=== PATIENT | female | born 1960 | race Caucasian/White ===

== ENCOUNTER 2017-06-01 13:41 | Inpatient (IN) ==
[2017-06-01] MEDS ORDERED: Lidocaine -MPF 1% 2 ML VIAL ID ONE (13:58)
[2017-06-01] MEDS ORDERED: Albuterol 2.5 MG/3 ML NEBULIZER IH ONE (13:58)
[2017-06-01] MEDS ORDERED: CeFAZolin Pre 2,000 MG/100 ML 2,000 MG/100 ML BAG IVPB ONE (13:58)
[2017-06-01] MEDS ORDERED: Ringers Solution, Lactated 1,000 ML IVC SCH ×2 (14:00→18:33)
[2017-06-01] MEDS ORDERED: *HR* Midazolam HCl 2 MG/2 ML VIAL ONE (14:30)
[2017-06-01] MEDS ORDERED: *HR* Succinylcholine 200 MG/10 ML VIAL IVP ONE (14:30)
[2017-06-01] MEDS ORDERED: Ondansetron 4 MG/2 ML VIAL ONE (14:30)
[2017-06-01] MEDS ORDERED: *HR* FentaNYL (PF) 100 MCG/2 ML VIAL ONE (14:30)
[2017-06-01] MEDS ORDERED: *HR* Propofol 200 MG/20 ML VIAL IVP ONE (14:30)
[2017-06-01] MEDS ORDERED: Lidocaine -MPF 2% 2 ML VIAL ONE (14:30)
[2017-06-01] MEDS ORDERED: *HR* Meperidine 25 MG/ML SYRINGE IVP PRN (14:36)
[2017-06-01] MEDS ORDERED: *HR* Promethazine 25 MG/ML VIAL IVP PRN (14:36)
--- NOTE | 2017-06-01 14:52 | History & Physical Report ---
Date of Encounter: 06/01/17 Time of Encounter: 14:52 24 Hour HP Update - Instructions Instructions: If the History and Physical is less than 30 days old and was completed prior to A.M. admission and or procedure and has NOT been updated on calendar day of procedure please complete this update prior to performing procedure. - Update Patient reports changes in Medical Condition: No Changes in examination, assessment, or condition: No Changes in Medication: No Preop tests/diagnostics Reviewed: Yes Surgery Remains Indicated: Yes Consent for Planned Operative Procedure(s) Verified: Yes - Pre-Operative Checklist Preoperative Checklist Indicated: No Prophylactic Antibiotic Ordered: Yes Is VTE Prophylaxis Indicated?: Yes
[2017-06-01] MEDS ORDERED: *HR* Morphine 2 MG/ML SYRINGE IVP ONE (14:56)
[2017-06-01] MEDS ORDERED: *HR* Morphine 2 MG/ML SYRINGE IVP PRN (14:57)
--- NOTE | 2017-06-01 15:00 | Anesthesia Evaluation PreOp ---
Date of Encounter: 06/01/17 Time of Encounter: 15:00 - Past History Planned Operation: Total Hip arthroplasty Cardiac History: Denies any Significant Hx Pulmonary History: Smoker, Asthma, COPD CASH MANAGEMENT SPECIALIST History: Denies Any Significant HX Other Medical History: GERD, Other (Stomach ulcer, fibromyalgia) Anesthesia History: No Prior Anesthetic Complications, Past Anesthesia, Problems (Had anaphylactic reaction to Reglan) Alcohol Use: none Medications and Allergies Albuterol Sulfate [Albuterol Inhaler] 2 puff IH Q6H PRN 12/07/15 [History] ARIPiprazole [Abilify] 10 mg PO DAILY 06/01/17 [History] Acetaminophen [8 Hour] 650 mg PO Q6H PRN 06/01/17 [History] Baclofen [Lioresal] 10 mg PO TID 06/01/17 [History] FLUoxetine HCl [PROzac] 60 mg PO DAILY 06/01/17 [History] Fluticasone/Vilanterol [Breo Ellipta 100-25 Mcg INH] 2 puff IH DAILY 06/01/17 [ History] Loratadine [Claritin] 10 mg PO DAILY 06/01/17 [History] Meloxicam [Meloxicam] 15 mg PO DAILY 06/01/17 [History] Omeprazole [PriLOSEC] 40 mg PO DAILY 06/01/17 [History] OxyCODONE/APAP 10/325 [Percocet 10/325 MG] 1 each PO Q6HR PRN 06/01/17 [History] diazePAM [Valium] 10 mg PO TID 06/01/17 [History] 3 Allergy/AdvReac Type Severity Reaction Status Date / Time iodine Allergy Hives Verified 06/01/17 14:08 metoclopramide [From Reglan] Allergy Anaphylaxis Verified 06/01/17 14:08 - Meds/Allergy Pre-op Review Medications Reviewed: Yes Allergies Reviewed: Yes Beta Blockers on Current Med List: No Anesthesia Results - Labs Laboratory Tests 05/30/17 12:20 Hgb 12.0 Hct 38.0 Plt Count 298 Anesthesia Exam Selected Entries 06/01/17 14:19 Temperature 98.8 F Pulse Rate 65 Respiratory Rate 18 Blood Pressure 117/81 O2 Sat by Pulse Oximetry 96 Weight: 68 kg NPO (# of Hours): over 8 hours - HEENT Pupil (Motor): Pupils equal Mallampati: II Teeth: Normal Oral Opening: Greater than 3 - Cardiac Rhythm: Regular Murmur: None - Pulmonary Breath Sounds: bilateral Clear Respiratory Effort: Symmetrical Anesthesia Assess/Plan ASA Score: 2 Modified [place] Scale for Level of Consciousness: Anixous, agitated or restless Anesthetic Plan: General Monitoring Plan: Standard Monitors Recovery Plan: PACU
--- NOTE | 2017-06-01 15:34 | Discharge Summary ---
Date of Encounter: 06/07/17 Time of Encounter: 08:37 - Discharge Diagnosis (1) Arthritis of right hip Priority: Primary Status: Chronic (2) Asthma Priority: Secondary Status: Chronic Qualifiers: Asthma severity: unspecified severity Asthma complication type: uncomplicated Qualified Code(s): J45.909 - Unspecified asthma, uncomplicated (3) COPD (chronic obstructive pulmonary disease) Priority: Secondary Status: Chronic Qualifiers: COPD type: unspecified COPD Qualified Code(s): J44.9 - Chronic obstructive pulmonary disease, unspecified (4) Status post total hip replacement, right Priority: Primary Status: Acute - Discharge Medications Home Medications: Albuterol Sulfate [Albuterol Inhaler] 2 puff IH Q6H PRN 12/07/15 [History] ARIPiprazole [Abilify] 10 mg PO DAILY 06/01/17 [History] Acetaminophen [8 Hour] 650 mg PO Q6H PRN 06/01/17 [History] Aspirin Enteric Coated [Aspirin EC] 325 mg PO BID #20 tablet. 06/01/17 [Rx] Baclofen [Lioresal] 10 mg PO TID 06/01/17 [History] FLUoxetine HCl [Prozac] 60 mg PO DAILY 06/01/17 [History] Fluticasone/Vilanterol [Breo Ellipta 100-25 Mcg INH] 2 puff IH DAILY 06/01/17 [ History] Loratadine [Claritin] 10 mg PO DAILY 06/01/17 [History] Meloxicam 15 mg PO DAILY 06/01/17 [History] Omeprazole [PriLOSEC] 40 mg PO DAILY 06/01/17 [History] OxyCODONE/APAP 10/325 [Percocet 10/325 MG] 1 each PO Q6HR PRN 06/01/17 [History] diazePAM [Valium] 10 mg PO TID 06/01/17 [History] Allergies/Adverse Reactions: 3 Allergy/AdvReac Type Severity Reaction Status Date / Time iodine Allergy Hives Verified 06/01/17 14:08 metoclopramide [From Reglan] Allergy Anaphylaxis Verified 06/01/17 14:08 Primary care physician: Danielle Paniagua - Patient Status Disposition: Home Health Service Condition: Good Functional capacity at discharge: uses cane/walker Overall status at discharge: patient is progressing back to baseline - Discharge Instructions Follow Up With: Mendy Muniz PAC [Physician Dryer And Washer Mechanic] - 06/08/17 8:00 am Lucas Stephenson MD [Partnered Physician] - 07/05/17 3:40 pm Additional Instructions: Discharge Instructions: Total Hip Replacement Please call [facility] ([phone]), your Primary Care Physician, or report to the Emergency Room if you have any of the following symptoms: Nausea, vomiting, fever greater that 101.5, swelling, chest pain, shortness of breath, increased pain/redness/drainage/odor for your incision site, numbness/ tingling, or any other concerning symptoms. ACTIVITY:Weight-bearing as tolerated for 8 weeks with hip dislocation precautions that physical therapy taught you. You may progress as tolerated under the guidance of your physical therapist. You do not need to sleep with a pillow between your legs. You can also seep on the operative side or on your stomach. MEDICATIONS: Upon discharge resume your home medications. Take all the medications as prescribed. Take a stool softener if taking narcotic pain medications. Stool softeners are only effective if you drink enough fluids. Drink 6-8 glass of water or fluids a day, unless this is not allowed for another health problem. Despite using stool softeners, if you haven't had a bowel movement in 3 days, please switch to a gentle laxative. Gentle laxatives are sold over the counter. You should have a bowel movement within 24 hours, if not call the office. You will be discharged from the hospital with a prescription for pain medication. You are encouraged to decrease the use of narcotic pain medication as tolerated. Should you require a refill, please call the office. [facility] prescribes narcotic pain medication for only 4-6 weeks after surgery. If you require pain medication beyond this time period, you may be referred to your Primary Care Physician or to the Pain Clinic for further evaluation. Plan ahead for refills on pain medication as many narcotics either need to be picked up at the office or mailed. It is best to call 48-72 hours in advance of needing a prescription refill so you don't run out of medication. To help control the post-operative pain, you may take NSAIDs (Aleve,Advil, Motrin, ibuprofen, naprosyn) or Tylenol as prescribed on the bottle in addition to the pain medication. ANTICOAGULATION (blood thinners): Continue your Aspirin, Lovenox or Coumadin as prescribed to help prevent a blood clot in the leg or in the lungs. As long as your incision remains dry and you tolerate the NSAIDs (Aleve, Advil, Motrin, Ibuprofen, Naprosyn), it is OK to use the NSAIDS while you are taking your anticoagulation medication. Should your incision start to drain, stop the NSAID and contact our office. Common symptoms of blood clot in the legs include: localized pain, swelling, calf tenderness, redness or discoloration of the skin. Blood clot in the lung symptoms include: shortness of breath, rapid pulse, sweating, and chest pain that worsens with deep breathing, coughing up blood, lightheadedness, feelings of anxiety. If you experience any of these symptoms notify your physician immediately, go to the emergency room, or if having trouble breathing, call 911. WOUND CARE: Leave the dressing on for 7 to 10days. You may change the dressing if it is saturated greater than 50%. Do not get the dressing wet at anytime. Wash your hands with antibacterial soap, rinse and dry prior to any wound care. If you have moni the visiting nurse or rehab facility can remove the stapes 10-14 days after surgery and place steri-strips across the wound. Leave the steri-strips in place until they fall off on their own. You may let water from the shower run on top of the steri-strips. If you do not have a visiting nurse or rehab facility, you will need to return to the office at 10-14 days for the moni to be removed. If you have itching or redness around the dressing call the office. FOLLOW-UP: Please follow up with your surgeon in the orthopedic clinic in 6 weeks from the day of surgery. If you have moni that need to be removed, you will need to come back to the office in 10-14 days from the day of surgery. - Hospital Course Hospital course: Ms. Gasca is a 56 year old female Status post right total hip replacement The patient had an uneventful postoperative course. They received antibiotics and physical therapy and were discharged in stable condition. There will follow -up in the office in 2 weeks. - Time Spent with Patient Total time spent providing and/or coordinating discharge services:
[2017-06-01] MEDS ORDERED: *HR* HYDROmorphone 2 MG/ML SYRINGE ONE ×2 (16:34→16:52)
[2017-06-01] MEDS ORDERED: EPHEDrine 50 MG/ML VIAL ONE (16:42)
--- NOTE | 2017-06-01 17:04 | Orthopedic Operative Note ---
Date of procedure: 06/01/17 Pre-op diagnosis: Right hip arthritis Post-op diagnosis: same Procedure: Procedure: Right Total Hip Replacment Estimated blood loss: 200 cc Hardware: Metal and polyethylene replacement. Biomet DM Cup: 52 G7 fin cup Femoral size 13 echo full profile lateralized stem Head: head with Petra +6 Procedural Notes: Grade 4 arthritic changes femoral head and acetabular socket. Operative procedure: The patient was brought to the operating room and placed on the operating room table. After general anesthesia was administered the patient was placed in the lateral decubitus position with the operative leg up. All pressure points were padded appropriately and the head was stabilized in the neutral position. The operative extremity was prepped and draped in the sterile surgical fashion patient received IV antibiotic prior to skin incision. A standard posterior approach is made to the operative hip, the incision was made through the skin and subcutaneous tissue hemostasis was obtained with Bovie cautery. Using careful sharp dissection the fascia was identified and incised exposing the external rotators. The external rotators were released off the greater trochanter and tagged with #2 FiberWire suture. The capsule was T'd open and the hip was brought into internal rotation. Patient noted to have grade 4 arthritic changes femoral head. The femoral neck cut was made at the appropriate level. An anterior capsulotomy was performed for the anterior retractor. Soft tissues removed from the acetabulum. Patient noted to have grade 4 arthritic changes acetabulum. Acetabulum was first reamed medially, and then reamed in 15 degrees of anteversion and 45 degrees off the horizontal. It was reamed up to the appropriate size 52. The appropriate-sized 52 acetabular cup was impacted in place in 15 degrees of anteversion and 45 degrees off the horizontal. This had good fit and fixation. The hip was brought back in to internal rotation and prepared with the box tender followed by the canal finder followed by broaching process in 20 degrees anteversion. It was broached up to the appropriate size 13. The femoral implant was impacted in place in 20 degrees of anteversion. Trial reduction found the hip to be stable with +6 head and Petra. The trials were removed and the real implants were impacted in place. The hip was reduced, patient had apparent equal leg lengths. The hip had excellent stability with forward flexion to 90 degrees adduction of 30 degrees and internal rotation of 60 degrees. The hip had no shuck. The hips after 2 minutes with a Betadine saline solution. It was irrigated out with 2 L of pulse irrigation. The hip was closed by the PA. Fascia was closed with a running #2 PDS suture. The deep tissue was irrigated and closed deep with #1 PDS suture superficially with 0 PDS suture and skin was closed with Dermabond and skin moni. The patient was placed in a sterile dressing and abduction pillow. The patient was extubated and transferred to the recovery room in stable condition. Anesthesia: FLAVIA Surgeon: Lucas Stephenson Sleeve Setter Safety Stitch: Mendy Muniz Condition: stable Disposition: PACU
[2017-06-01] MEDS: *HR* HYDROmorphone (PF) 1 MG/ML SYRINGE IVP PRN ×2 (17:47→17:56)
[2017-06-01 17:55] LABS: Hematocrit 32.1 % (35.3-44.9)
[2017-06-01 18:00] LABS: Hemoglobin 10.2 g/dL (11.5-15.4)
[2017-06-01] MEDS ORDERED: *HR* Enoxaparin 30 MG/0.3 ML SYRINGE SQ SCH (18:00)
--- NOTE | 2017-06-01 18:18 | Anesthesia Evaluation Post Op ---
Date of Encounter: 06/01/17 Time of Encounter: 18:15 - Vital Signs Vital Signs: Selected Entries 06/01/17 18:10 Temperature 98.4 F Pulse Rate 80 Respiratory Rate 12 Blood Pressure 109/81 O2 Sat by Pulse Oximetry 92 - Lungs Lungs: Clear Ascult./Percussion - Airway Airway: Non-obstructed - Cardiovascular Regular Rate - Mental Status Mental Status: Alert & Oriented, Answers Appropriately, Sedated - Pain Pain Scale: 5 (Complaining of a lot of pain, however her vital signs and level of sedation do not correlate with her stated level of pain. ) - Nausea Vomiting Nausea Vomiting: Not Present - Hydration Hydration: NPO - Discharge PostOp Status: Discharge Patient to home (Patient has received 2 mg Morphine preop and 3 mg Dilaudid post op. She is breathing 12/minute and has normal heart rate and low B/P. She is not a candidate for further narcotic at this time. She will be transferred to the floor at this time.)
[2017-06-01] MEDS ORDERED: *HR* OxyCODONE Immed Rel 5 MG TABLET PO PRN ×2 (18:33)
[2017-06-01] MEDS ORDERED: Temazepam 15 MG CAPSULE PO PRN (18:33)
[2017-06-01] MEDS ORDERED: *HR* HYDROmorphone (PF) 1 MG/ML SYRINGE IVP PRN (18:33)
[2017-06-01] MEDS ORDERED: ceFAZolin 2,000 MG in D5% in Water 100 ML IVPB SCH (18:33)
[2017-06-01] MEDS ORDERED: MOM Conc 10 ML UD.LIQ PO PRN (18:33)
[2017-06-01] MEDS ORDERED: Ondansetron 4 MG/2 ML VIAL IVP PRN (18:33)
[2017-06-01] MEDS ORDERED: Sennosides 8.6 MG TABLET PO PRN (18:33)
[2017-06-01] MEDS ORDERED: Naloxone 0.4 MG/ML INJ IVP PRN (18:33)
[2017-06-01] MEDS: Baclofen 10 MG TABLET PO SCH ×2 (18:48→20:53)
[2017-06-01] MEDS: diazePAM 10 MG TABLET PO SCH ×2 (18:49→20:52)
[2017-06-01] MEDS: Ascorbic Acid 500 MG TABLET PO SCH (18:49)
[2017-06-01] MEDS: ceFAZolin 2,000 MG in D5% in Water 100 ML IVPB SCH (20:53)
[2017-06-02] MEDS: ceFAZolin 2,000 MG in D5% in Water 100 ML IVPB SCH (04:50)
[2017-06-02] MEDS ORDERED: *HR* Enoxaparin 30 MG/0.3 ML SYRINGE SQ SCH (06:00)
[2017-06-02 07:02] LABS: Hematocrit 28.8 % (35.3-44.9); Hemoglobin 9.3 g/dL (11.5-15.4)
[2017-06-02 07:16] LABS: BUN/Creatinine Ratio 14 (6-26); Blood Urea Nitrogen 12 mg/dL (7-20); Calcium 9.1 mg/dL (8.6-10.8); Carbon Dioxide 25 mEq/L (19-29); Chloride 102 mEq/L (98-109); Glucose 124 mg/dL (70-99); Osmolality,Calculated 285 (280-300); Potassium 4.9 mEq/L (3.5-4.5); Sodium 137 mEq/L (136-145); eGFR For African Americans > 60 (> 60); eGFR For Non-African Americans > 60 (> 60)
[2017-06-02 08:09] VITALS: BP 99/68
[2017-06-02] MEDS: Baclofen 10 MG TABLET PO SCH (08:11)
[2017-06-02] MEDS: Ascorbic Acid 500 MG TABLET PO SCH (08:11)
[2017-06-02] MEDS: diazePAM 10 MG TABLET PO SCH (08:11)
[2017-06-02] MEDS: *HR* OxyCODONE/APAP 10/325 TABLET PO SCH ×2 (08:12→11:49)
[2017-06-02] MEDS ORDERED: (Fluticasone/Vilanterol [Breo Ellipta 100-25 Mcg Inh]) IH SCH (09:00)
[2017-06-02] MEDS ORDERED: FLUoxetine 20 MG CAPSULE PO SCH (09:00)
[2017-06-02] MEDS ORDERED: Loratadine 10 MG TABLET PO SCH (09:00)
[2017-06-02] MEDS ORDERED: ARIPiprazole 10 MG TABLET PO SCH (09:00)
[2017-06-02] MEDS ORDERED: Multivit/Ca/Min/Fe/FA 1 TAB TABLET PO SCH (09:00)
--- NOTE | 2017-06-02 09:39 | Orthopedics Progress Note ---
Date of Encounter: 06/02/17 Time of Encounter: 08:00 - Assessment and Plan (1) Status post total hip replacement, right Current Visit: Yes Status: Acute Right THR 06/01/17 - POD#1 Patient doing well, A&O in chair, Pain controlled. Changing to Percocet 10/325 q 6 hours with Dilaudid as needed, plan to wean off as D/C planned for today. Vitals stable. Afebrile. H/H - Stable .12/27- - asymptomatic Plan: Hip precautions x 6 weeks. Hip ABD pillow at night x 6 weeks. Added Lidoderm patch, and Mobic daily for discharge. Taper off Dilaudid, Changed to Chronic pain medication. No Pain RX at Discharge. ASA 325 daily for DVT prophylaxis. RLE: WBAT D/C to today with HH. * Continuity placed (2) Arthritis of right hip Current Visit: Yes Status: Chronic Subjective Principal diagnosis: Right THR 06/01/17 Interval history: Right THR 06/01/17 - POD#1 Patient doing well, A&O in chair, Pain controlled. Changing to Percocet 10/325 q 6 hours with Dilaudid as needed, plan to wean off as D/C planned for today. Vitals stable. Afebrile. H/H - Stable - - asymptomatic RLE: Minimal swelling, no erythema or ecchymosis noted. No calf tenderness or warmth noted. ROM limited. NV intact distally. Plan: Hip precautions x 6 weeks. Hip ABD pillow at night x 6 weeks. Added Lidoderm patch, and Mobic daily for discharge. Taper off Dilaudid, Changed to Chronic pain medication. No Pain RX at Discharge. ASA 325 daily for DVT prophylaxis. RLE: WBAT D/C to today with HH. * Continuity placed. Objective Vital signs: Vital Signs Temp Pulse Resp BP Pulse Ox 06/02/17 08:08 97.7 F 93 18 99/68 92 06/02/17 03:11 98.0 F 72 18 122/76 98 06/01/17 23:15 98.7 F 86 16 101/67 95 06/01/17 18:51 97.4 F L 83 15 111/74 93 06/01/17 18:35 97.1 F L 73 14 111/74 90 06/01/17 18:10 98.4 F 80 12 109/81 92 06/01/17 18:00 98.4 F 73 12 113/84 94 06/01/17 17:50 81 12 120/85 94 06/01/17 17:40 78 12 132/81 99 06/01/17 17:30 97.4 F L 65 12 107/81 100 06/01/17 14:19 98.8 F 65 18 117/81 96 Intake and Output 06/01/17 06/02/17 06/02/17 23:59 07:59 15:59 Intake Total 100 / 100 240 / 240 Output Total 200 / 200 300 / 300 Balance -100 / -100 -60 / -60 Intake: IV Fluids 100 / 100 Ancef 2,000 MG In 100 / 100 Dextrose 5% 100 ML @ 200 mls/hr IVPB Q8H PARAS Rx#: [id number] Oral 240 / 240 Output: Urine 0 / 0 300 / 300 Estimated Blood Loss 200 / 200 Other: Meal Breakfast Percent of Meal Consumed 50% # Voids 1 1 Weight 72.13 kg Patient Weight 06/02/17 23:59 Weight 72.13 kg Incision: clean and dry - Labs CBC & BMP: 06/02/17 04:22 06/02/17 04:22 Labs: Abnormal lab results Hgb 9.3 g/dL (11.5-15.4) L 06/02/17 04:22 Hct 28.8 % (35.3-44.9) L 06/02/17 04:22 Potassium 4.9 mEq/L (3.5-4.5) H 06/02/17 04:22 Glucose 124 mg/dL (70-99) H 06/02/17 04:22 - VTE Documentation of Mechanical Device: Venous foot pump, device Consult Discharge Plan - Plan Referrals: Danielle Paniagua MD [Primary Care Provider] -
--- NOTE | 2017-06-02 09:43 | Physician Discharge Referral ---
Home Health/Hosp Referral Info Transfer to: Home Health Attending Provider: Provider in Charge Post Discharge: PCP - Diagnosis (1) Status post total hip replacement, right Priority: Primary Status: Acute (2) Arthritis of right hip Priority: Primary Status: Chronic (3) Asthma Priority: Secondary Status: Chronic (4) COPD (chronic obstructive pulmonary disease) Priority: Secondary Status: Chronic (5) Chronic pain Priority: Secondary Status: Chronic - Respiratory Orders None Smoking Cessation: Smoking cessation has been advised. For more information, call the [place] Tobacco Quit Line at 9-523-BJBO-NOW. - Dressing/Wound Care Type of Dressing/Treatments w/Frequency: Opsite dressing, leave intact until first post-operative visit. If dressing becomes >50% saturated, contact office, remove dressing and place appropriate dressing in its place. Do not allow for dressing to get wet. Danis in place, plan to remove at post-operative day #14-16. - Diet/Nutrition Diet/Nutrition Orders: Regular - Activity Activity Orders: Up ad nunu, Ambulate, Walker - Services Needed Following services are medically necessary services: Nursing, Home Health Aide, Physical Therapy, Occupational Therapy Home Care Orders: Total Joint Precautions x 6 weeks Apply cold therapy wrap 3-6x/day for 20 minutes at a time. Encourage ambulation throughout the day Use Incentive spirometer 10x/hour. Elevate affected extremity above heart as tolerated. Brace: Wear hip ABDUCTION brace at night x 6 weeks - Transfer Medications Home Medications: Albuterol Sulfate [Albuterol Inhaler] 2 puff IH Q6H PRN 12/07/15 [History] ARIPiprazole [Abilify] 10 mg PO DAILY 06/01/17 [History] Acetaminophen [8 Hour] 650 mg PO Q6H PRN 06/01/17 [History] Aspirin Enteric Coated [Aspirin EC] 325 mg PO BID #20 tablet. 06/01/17 [Rx] Baclofen [Lioresal] 10 mg PO TID 06/01/17 [History] FLUoxetine HCl [Prozac] 60 mg PO DAILY 06/01/17 [History] Fluticasone/Vilanterol [Breo Ellipta 100-25 Mcg INH] 2 puff IH DAILY 06/01/17 [ History] Loratadine [Claritin] 10 mg PO DAILY 06/01/17 [History] Meloxicam 15 mg PO DAILY 06/01/17 [History] Omeprazole [PriLOSEC] 40 mg PO DAILY 06/01/17 [History] OxyCODONE/APAP 10/325 [Percocet 10/325 MG] 1 each PO Q6HR PRN 06/01/17 [History] diazePAM [Valium] 10 mg PO TID 06/01/17 [History] Allergies/Adverse Reactions: 3 Allergy/AdvReac Type Severity Reaction Status Date / Time iodine Allergy Hives Verified 06/01/17 14:08 metoclopramide [From Reglan] Allergy Anaphylaxis Verified 06/01/17 14:08 Certification: Further, I certify that my clinical findings support that this patient is homebound (i.e. absences from home require considerable and taxing effort and are for medical reasons or bahai services or infrequently or short duration when for other reasons) because: Homebound Reason: Post-surgery restriction and or conditions limit ability to leave home Attestation: My signature below is to certify that this patient is under my care and that I, or nurse practitioner, or a physician's marketing support assistant working with me, has a face-to -face encounter with this patient.
--- NOTE | 2017-06-02 12:04 | Event Note ---
Date of Encounter: 06/02/17 Time of Encounter: 12:00 PCR - Right THR POD#1 Patient seen at bedside. . Participating in PT. They are recommending ECF however patient has been ambulating independently to chair and restroom and toileting herself. Patient has full control of bilateral lower extremities and denies any numbness or paresthesia. All questions and concerns addressed. Educated on use of incentive spirometer, ambulation, and hydration. Patient educated on post-operative restrictions and care Addressed: see above D/C plan:. Home with HH. D/C order placed - home today.
== END 2017-06-02 14:45 | disposition home health service (06) | DRG 301 ==
LOC: SAMDAY 13:41 → 3NENU 18:32
PROVIDERS: ADMIT Orthopaedic Surgery; ATTEND Orthopaedic Surgery